=== PATIENT | female | born 1930 | race Caucasian/White ===

== ENCOUNTER 2016-11-16 14:20 | Inpatient (IN) | payer OTHER ==
[~2016-11-16] VITALS: Ht 170.2 cm; Wt 52.7 kg
[2016-11-16] VITALS (9 sets, daily range): BP systolic 95–138; BP diastolic 33–48
--- NOTE | ~2016-11-16 | HC ---
[facility] [place] [address] CONSULTATION Name: JONO STEWART Room #: 447-P ADM IN M.R.#: [id number] Admission: 11/16/16 Attend Phys: Justo Briones DO Discharge: Date of : 28 Report #: [id number] THIS REPORT FOR: //name// CC: Justo Briones DO Kimi Durbin MD DATE OF SERVICE: 11/16/2016 PATIENT OF: Dr. Kimi Durbin and Dr. Justo Briones. CHIEF COMPLAINT: This is a very pleasant 86-year-old white female who experienced vomiting 2 days ago times 1 after eating some chicken with sauce that did not agree with her, she said. Then, she experienced 2 days of dark colored stools described as melena. She had a lot of abdominal cramping when she was having the melena and she developed increasing weakness. She came to the emergency room for evaluation after a hemoglobin check at her place of residence showed hemoglobin of 4.6. At the hospital, her hemoglobin on admission was 5.3. She was admitted for blood transfusions and further workup. PAST MEDICAL HISTORY: Significant for hypertension, atrial fibrillation and she is on Xarelto for that. 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 PAST SURGICAL HISTORY: Significant for cholecystectomy. She has had a total abdominal hysterectomy with bilateral salpingo-oophorectomy and appendectomy and bilateral cataract extractions and lens implants. ALLERGIES: CODEINE AND SULFA. MEDICATIONS: Include amiodarone, Coreg, Advair, Lasix, DuoNeb, Zestril, omeprazole, KCl, Xarelto and tramadol. SOCIAL HISTORY: She does not smoke, she does not drink alcohol and she does not use street drugs. FAMILY HISTORY: Significant for gastric carcinoma in her father and brother and both of them as a result of this disease. There is no history of colon polyps or colon cancer. The patient herself has never had a colonoscopy. REVIEW OF SYSTEMS: She denies any dysphagia, odynophagia, gastroesophageal reflux, hiatal hernia, peptic ulcer disease. She did have 1 episode of vomiting, but ordinarily does not have nausea or vomiting. Her weight has been stable. Her appetite is excellent. She denies any hematemesis or hematochezia, but she had melena for 2 days prior to admission. She had crampy abdominal pain [facility] [address] [place] [address] CONSULTATION Name: JONO STEWART Room #: 447-P [facility] IN [facility]#: [id number] Admission: 11/16/16 Attend Phys: Justo Briones DO Discharge: Date of : 29 Report #: [id number] with this melena, but ordinarily does not have any abdominal pain. She denies any history of jaundice, hepatitis, cholelithiasis, cholecystitis or pancreatitis. She did have gallbladder removed. PHYSICAL EXAMINATION: GENERAL: Reveals a well-developed, thin 86-year-old white female in no apparent distress at the time of the examination. She is awake, alert, oriented times 4 and cooperative and pleasant to converse with. Her height is 5 feet 7 inches, her weight is 116 pounds. HEENT: She is normocephalic, atraumatic and anicteric. HEART: Rhythm is regular at this time, although I know she is a chronic atrial fibrillation patient. I have not seen her EKG. LUNGS: Clear to auscultation bilaterally in all purvis. ABDOMEN: Soft and nontender. Bowel sounds are present in all 4 quadrants. There is no palpable organomegaly or mass. EXTREMITIES: Warm and dry. NEUROLOGIC: She appears grossly intact without lateralizing signs, though I did not test her extensively neurologically. SIGNIFICANT LABORATORY DATA: Her BMP is normal except for a creatinine of 1.2. Her calcium is 8.3, albumin is 2.6, GFR is 42. INR is 1.1, PTT is 25.9. CBC shows a white count of 9.2, RBC 1.92, hemoglobin 5.3, hematocrit 16.1, MCV is 84, MCH is 26, MCHC is 31, RDW is 20, platelets are 338,000. She has anisocytosis and microcytosis and hypochromasia. Stool is heme positive. There were no radiological exams. IMPRESSION: 1. Acute gastrointestinal blood loss with melena and hemoglobin of 5. The patient has been on Xarelto for chronic atrial fibrillation. She has experienced increasing weakness over the last 2 days. She denies dyspnea on exertion or any type of chest pain. 2. Chronic atrial fibrillation, though rhythm is regular at this time. 3. The patient vomited 2 days ago. No hematemesis was noted. 4. Hypertension. 5. History of congestive heart failure. 6. Possible chronic obstructive pulmonary disease. 7. Arthritis in her ankles. She takes occasional Advil for this. 8. Family history of gastric cancer in her father and brother. 9. Protein-calorie malnutrition. RECOMMENDATIONS: For her to have 2 units of packed cells today as you have ordered. I would also recommend checking an iron, TIBC, ferritin, B12 and folate levels. We will hold her Xarelto for now and she will be started on PPIs. We will keep her n.p.o. after midnight for an EGD in the morning. [facility] [address] [place] [address] CONSULTATION Name: JONO STEWART Room #: 447-P ADM IN M.R.#: [id number] Admission: 11/16/16 Attend Phys: Justo Briones DO Discharge: Date of : 29 Report #: [id number] Thank you very much once again for allowing me to participate in her care, Dr. Briones and Dr. Durbin. <ELECTRONICALLY SIGNED> By: Medina Carpenter DO 11/17/16 0757 [id number] 2247 Medina Carpenter DO /nt
--- NOTE | ~2016-11-16 | P ---
[facility] [place] [address] PROCEDURE REPORT Name: JONO STEWART Room #: 447-P ADM IN M.R.#: [id number] Admission: 11/16/16 Attend Phys: Justo Briones DO Discharge: Date of : 29 Report #: [id number] THIS REPORT FOR: //name// CC: Justo Durbin MD BRIEF HISTORY: The patient is an 86-year-old woman who presented with melanotic stools and anemia, requiring transfusion. Upper endoscopy was completed by Dr. Mendoza yesterday and the source of blood loss was not identified. She presents today for colonoscopy to evaluate her GI bleeding. PREOPERATIVE DIAGNOSIS: Gastrointestinal bleeding. POSTOPERATIVE DIAGNOSIS: Moderate diverticulosis coli. MEDICATIONS: Deep sedation with propofol per anesthesia. SPECIMEN: None. ESTIMATED BLOOD LOSS: None. PROCEDURE: Colonoscopy to cecum and terminal ileum. FINDINGS: Prior to propofol sedation, procedure of colonoscopy was discussed with the patient as well as potential risks and its complications. She indicates she understands and desires to proceed. DESCRIPTION OF PROCEDURE: With the patient in the left lateral decubitus position, digital examination was completed, which revealed no abnormalities. Subsequently, the Alloy Digital video colonoscope was introduced into the rectum, advanced under direct vision to the cecum. Cecum was identified by the ileocecal valve and the appendiceal orifice. I was able to advance the tip of the scope across the ileocecal valve and into the distal terminal ileum. Examination of the ileum revealed bilious material. No blood was seen in the ileum. The scope was then withdrawn back into the cecum. The scope was withdrawn through the entire colon. Examination of the colon revealed there was blood from the tip of the cecum all the way to the anal verge. Subjectively, the blood seemed to be slightly brighter in the proximal colon as compared to the distal colon. We spent a good deal of time washing, irrigating and suctioning and cleaning the mucosa as well as possible. In the areas that were cleaned, the mucosa was within normal limits. Normal vascular pattern. Normal light reflex. A bleeding lesion was not found today. She did have a few from the proximal colon with moderately severe diverticular disease of the left colon, without endoscopic evidence of diverticulitis. No mass lesions were seen within the limitations. Vascular ectasias were not seen. Active bleeding was not seen. Splitting of the vessels was not seen. Active bleeding could not be [address] [address] PROCEDURE REPORT Name: JONO STEWART Room #: 447-P [facility] IN ..#: [id number] Admission: 11/16/16 Attend Phys: Justo Briones DO Discharge: Date of : 29 Report #: [id number] found on examination today. Again, there was moderately severe diverticular disease of the left colon, in particular the sigmoid colon, but no endoscopic evidence of diverticulitis. Scope was withdrawn in the rectum and upon retroflexion, no additional abnormalities were seen. Scope was withdrawn. The patient tolerated the procedure well. DISPOSITION: The patient with GI bleeding. There is blood in her colon and presumably, she had some bleeding with or after the prep. However, an active bleeding site could not be identified. She does have diverticular disease and bleeding diverticulum could be the culprit. I suspect the blood is more proximal, although it could be left sided and refluxing back proximally. If bleeding continues, consider a CT angio or a bleeding scan to try to localize the site of bleeding. It is noted she had been anticoagulated and if possible, hold the anticoagulation for several more days. Again, evidence to suggest a colonic bleed, although the site could not be identified. <ELECTRONICALLY SIGNED> By: Ravindra Case MD 11/18/16 1142 1056 1127 Ravindra Case MD /nt
--- NOTE | ~2016-11-16 | EKG ---
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 : 1930 Requested By: Michelle Butler Order Number: [id number] MD: Des Orozco Measurements Intervals [place] Rate: 61 P: 17 [place]: 139 QRS: 70 QRSD: 93 T: 65 QT: 483 QTc: 487 Interpretive Statements Sinus rhythm Low voltage, extremity leads Borderline prolonged QT interval Compared to ECG 04/07/2011 17:43:00 Low QRS voltage now present Electronically Signed On 11-19-2016 22:03:00 CDT by Des Orozco [email or web address] <ELECTRONICALLY SIGNED> By: Des Orozco MD 11/19/16 2203 1436 143 Des Orozco MD /[facility]
[~2016-11-16 14:20] MED LIST: LISINOPRIL20 MG PO
[2016-11-16 14:57] LABS: PLATELET COUNT 338 thou/uL (150-400); WBC 9.2 thou/uL (4.0-11.0)
[2016-11-16 15:03] LABS: ABSOLUTE NEUTROPHILS 6.7 thou/uL (1.4-8.2); BASOPHILS 0.9 % (0.0-2.0); EOSINOPHILS 2.9 % (0.0-3.0); LYMPHOCYTES 15.2 % (24.0-44.0); MCH 26.3 pg (26.0-34.0); MCHC 31.3 g/dL (28.0-37.0); MCV 83.9 fL (80.0-100.0); MONOCYTES 8.1 % (1.0-8.0); POLYS 72.9 % (36.0-66.0); RBC 1.92 mil/uL (4.20-5.00); RDW 20.2 % (10.5-14.5)
[2016-11-16 15:04] LABS: CALCIUM 8.3 mg/dL (8.5-10.1); CREATININE 1.2 mg/dL (0.6-1.0); POTASSIUM 4.5 mmol/L (3.5-5.1)
[2016-11-16 15:07] LABS: MANUAL DIFF NO
[2016-11-16 15:08] LABS: HEMATOCRIT 16.1 % (37.0-47.0); HEMOGLOBIN 5.1 gm/dL (12.0-15.0)
[2016-11-16 15:11] LABS: ALBUMIN 2.6 g/dL (3.4-5.0); TOTAL BILIRUBIN 0.3 mg/dL (<0.1-1.0); TOTAL PROTEIN 5.5 g/dL (6.4-8.2)
[2016-11-16 15:13] LABS: APTT 25.9 Seconds (24.5-32.8); INR 1.1; PROTIME 11.5 Seconds (9.3-11.4)
[2016-11-16 15:31] LABS: ANISOCYTOSIS 1+; HYPOCHROMASIA 2+; MICROCYTES 1+; PLATELET ESTIMATE NORMAL
[2016-11-16] MEDS ORDERED: ADVAIR HFA115 MCG/21 INH (16:27)
[2016-11-16] MEDS ORDERED: TRAMADOL 50 MG50 MG PO (16:28)
[2016-11-16] MEDS ORDERED: DUONEB 2.5-0.5 M3 ML INH (16:28)
[2016-11-16] MEDS ORDERED: LASIX 20 MG TAB20 MG PO (16:28)
[2016-11-16] MEDS ORDERED: LISINOPRIL5 MG PO (16:28)
[2016-11-16] MEDS ORDERED: COREG6.25 MG PO (16:29)
[2016-11-16] MEDS ORDERED: PACERONE 200 M200 M1 PO (16:29)
[2016-11-16] MEDS ORDERED: OMEPRAZOLE40 MG PO (16:30)
[2016-11-16] MEDS ORDERED: XARELTO15 MG PO (16:30)
[2016-11-16] MEDS ORDERED: POTASSIUM20 PO (16:30)
[2016-11-16 21:08] LABS: HEMATOCRIT 16.6 % (37.0-47.0); HEMOGLOBIN 5.3 gm/dL (12.0-15.0)
[2016-11-17 02:30] VITALS: BP 121/36
[2016-11-17 06:06] LABS: ABSOLUTE NEUTROPHILS 5.6 thou/uL (1.4-8.2); BASOPHILS 1.4 % (0.0-2.0); EOSINOPHILS 4.8 % (0.0-3.0); HEMATOCRIT 22.4 % (37.0-47.0); LYMPHOCYTES 18.2 % (24.0-44.0); MCH 27.3 pg (26.0-34.0); MCHC 32.7 g/dL (28.0-37.0); MCV 83.5 fL (80.0-100.0); MONOCYTES 9.4 % (1.0-8.0); PLATELET COUNT 301 thou/uL (150-400); POLYS 66.2 % (36.0-66.0); RBC 2.68 mil/uL (4.20-5.00); RDW 18.6 % (10.5-14.5); WBC 8.4 thou/uL (4.0-11.0)
[2016-11-17 06:10] LABS: HEMOGLOBIN 7.3 gm/dL (12.0-15.0); MANUAL DIFF NO
[2016-11-17 06:21] LABS: CALCIUM 8.1 mg/dL (8.5-10.1); CREATININE 1.2 mg/dL (0.6-1.0); POTASSIUM 4.5 mmol/L (3.5-5.1)
[2016-11-17 08:00] VITALS: BP 135/64
[2016-11-17 16:00] VITALS: BP 153/73
[2016-11-17 19:42] VITALS: BP 117/97
[2016-11-18 03:55] VITALS: BP 124/47
[2016-11-18 08:05] VITALS: BP 163/61
[2016-11-18 16:14] VITALS: BP 135/40
[2016-11-18 19:45] VITALS: BP 121/46
[2016-11-19 04:26] VITALS: BP 117/42
[2016-11-19 05:18] LABS: ABSOLUTE NEUTROPHILS 4.3 thou/uL (1.4-8.2); BASOPHILS 1.3 % (0.0-2.0); EOSINOPHILS 5.3 % (0.0-3.0); HEMOGLOBIN 6.5 gm/dL (12.0-15.0); LYMPHOCYTES 17.3 % (24.0-44.0); MCH 27.7 pg (26.0-34.0); MCHC 33.2 g/dL (28.0-37.0); MCV 83.5 fL (80.0-100.0); MONOCYTES 9.8 % (1.0-8.0); PLATELET COUNT 299 thou/uL (150-400); POLYS 66.3 % (36.0-66.0); RBC 2.33 mil/uL (4.20-5.00); RDW 18.5 % (10.5-14.5); WBC 6.5 thou/uL (4.0-11.0)
[2016-11-19 05:19] LABS: MANUAL DIFF NO
[2016-11-19 05:22] LABS: HEMATOCRIT 19.5 % (37.0-47.0)
[2016-11-19 05:24] LABS: CALCIUM 8.1 mg/dL (8.5-10.1); CREATININE 0.8 mg/dL (0.6-1.0); POTASSIUM 4.8 mmol/L (3.5-5.1)
[2016-11-19 07:25] VITALS: BP 135/61
[2016-11-19 07:31] VITALS: BP 119/60; BP 149/64
[2016-11-19 09:07] VITALS: BP 149/64
[2016-11-19 14:25] VITALS: BP 119/64
[2016-11-19 14:53] LABS: HEMATOCRIT 26.5 % (37.0-47.0)
[2016-11-19 14:55] LABS: HEMOGLOBIN 8.8 gm/dL (12.0-15.0)
[2016-11-19 20:30] VITALS: BP 133/49; BP 1330/49
[2016-11-19 21:15] LABS: HEMATOCRIT 24.7 % (37.0-47.0); HEMOGLOBIN 8.7 gm/dL (12.0-15.0)
[2016-11-20 02:58] VITALS: BP 127/57
[2016-11-20 06:17] LABS: ABSOLUTE NEUTROPHILS 5.4 thou/uL (1.4-8.2); BASOPHILS 0.8 % (0.0-2.0); HEMATOCRIT 25.9 % (37.0-47.0); HEMOGLOBIN 8.6 gm/dL (12.0-15.0); LYMPHOCYTES 15.8 % (24.0-44.0); MCHC 33.2 g/dL (28.0-37.0); MCV 84.3 fL (80.0-100.0); MONOCYTES 9.6 % (1.0-8.0); PLATELET COUNT 268 thou/uL (150-400); POLYS 68.8 % (36.0-66.0); RBC 3.07 mil/uL (4.20-5.00); RDW 17.4 % (10.5-14.5); WBC 7.8 thou/uL (4.0-11.0)
[2016-11-20 06:19] LABS: MANUAL DIFF NO
[2016-11-20 06:31] LABS: CALCIUM 8.3 mg/dL (8.5-10.1); CREATININE 0.9 mg/dL (0.6-1.0); POTASSIUM 4.4 mmol/L (3.5-5.1)
[2016-11-20 08:00] VITALS: BP 139/44
[2016-11-20 16:00] VITALS: BP 135/45
[2016-11-20 20:30] VITALS: BP 136/44
[2016-11-21 04:15] VITALS: BP 107/30
[2016-11-21 06:22] LABS: HEMATOCRIT 25.9 % (37.0-47.0); HEMOGLOBIN 8.4 gm/dL (12.0-15.0); MCH 27.5 pg (26.0-34.0); MCHC 32.4 g/dL (28.0-37.0); MCV 84.9 fL (80.0-100.0); RBC 3.05 mil/uL (4.20-5.00); RDW 17.9 % (10.5-14.5); WBC 7.7 thou/uL (4.0-11.0)
[2016-11-21 08:39] VITALS: BP 133/68
[2016-11-21 09:06] VITALS: BP 140/62
[2016-11-21 15:37] VITALS: BP 117/49
[2016-11-21 20:05] VITALS: BP 138/54
[2016-11-22 04:30] VITALS: BP 128/56
[2016-11-22 08:53] VITALS: BP 151/65
[2016-11-22] MEDS ORDERED: ASPIR 8181 MG PO (10:46)
[2016-11-22] MEDS ORDERED: PANTOPRAZOLE SO40 M1 PO (10:46)
== END 2016-11-22 17:00 | DRG 377 ==
LOC: ER 14:20 → EROBS 15:22 → 4S 15:22
PROVIDERS: Family Medicine; Internal Medicine Gastroenterology; Physician Assistant; Specialist
PROC: 30233N1 Transfusion of Nonautologous Red Blood Cells into Peripheral Vein, Percutaneous Approach (ICD-10-PCS; 2016-11-16)
PROC: 0DJ08ZZ Inspection of Upper Intestinal Tract, Via Natural or Artificial Opening Endoscopic (ICD-10-PCS; principal; 2016-11-17)
PROC: 0DJD8ZZ Inspection of Lower Intestinal Tract, Via Natural or Artificial Opening Endoscopic (ICD-10-PCS; 2016-11-18)
DX: K92.1 Melena (principal); E43 Unspecified severe protein-calorie malnutrition; D62 Acute posthemorrhagic anemia; Z68.1 Body mass index [BMI] 19.9 or less, adult; M19.90 Unspecified osteoarthritis, unspecified site; I50.9 Heart failure, unspecified; I11.0 Hypertensive heart disease with heart failure; Z96.1 Presence of intraocular lens; I48.2 Chronic atrial fibrillation; K57.30 Diverticulosis of large intestine without perforation or abscess without bleeding; K44.9 Diaphragmatic hernia without obstruction or gangrene; Z88.6 Allergy status to analgesic agent; Z88.2 Allergy status to sulfonamides; Z88.0 Allergy status to penicillin; Z90.49 Acquired absence of other specified parts of digestive tract; Z90.710 Acquired absence of both cervix and uterus; Z90.722 Acquired absence of ovaries, bilateral; Z98.42 Cataract extraction status, left eye; Z98.41 Cataract extraction status, right eye; Z80.0 Family history of malignant neoplasm of digestive organs
CPT/HCPCS: 10100; 62110; 62900; 70005

== ENCOUNTER → 2016-12-01 | Outpatient (CLI) | payer OTHER | LOC: OPONC 12:52 | DX: D64.9 Anemia, unspecified (principal) ==

== ENCOUNTER 2018-10-26 08:00 | Inpatient (IN) | payer OTHER ==
[2018-10-26] VITALS (7 sets, daily range): BP systolic 128–188; BP diastolic 46–78
[~2018-10-26] VITALS: Ht 167.6 cm; Wt 59.6 kg
--- NOTE | ~2018-10-26 | HC ---
[facility] [place] [address] CONSULTATION Name: JONO STEWART Room #: 219-P ADM IN M.R.#: [id number] Admission: 10/26/18 ������������������ Attend Phys: Diego Srivastava MD Discharge: ������������������ Date of : 29 Report #: [id number] THIS REPORT FOR: //name// CC: iDego Durbin DATE OF SERVICE: 11/03/2018 CONSULTATION: Infectious diseases. HISTORY OF PRESENT ILLNESS: The patient is an 88-year-old white female admitted to [facility] on 10/26/2018 complaining of altered mental status. This was associated with cough, positive chest x-ray and increased oxygen requirements. The patient was diagnosed with healthcare-associated pneumonia, possible aspiration. She was treated with cefepime plus Cipro. The patient has been in the hospital now for about a week. She was noted to have a rising white count. Infectious disease consultation was requested to assist with further evaluation and management. PAST MEDICAL HISTORY: Significant for hypertension, coronary artery disease and COPD. ALLERGIES: SHE HAS A HISTORY OF PENICILLIN AND SULFA ALLERGIES, BUT THEY ARE NOT OTHERWISE CHARACTERIZED. SOCIAL HISTORY: The patient is . No history of tobacco nor alcohol. REVIEW OF SYSTEMS: CONSTITUTIONAL: Somewhat limited because of confusion. The patient is aware that she is in the hospital. She says she feels pretty comfortable. She is not complaining of shortness of breath. She denies fevers, chills, sweats. HEENT: She denies any headache, sinus congestion, sore throat, trouble swallowing. PULMONARY: The patient is not complaining of cough, chest pain or shortness of breath. CARDIOVASCULAR: She is not complaining of angina, syncope or palpitations. GASTROINTESTINAL: The patient denies nausea, vomiting, diarrhea or constipation. GENITOURINARY: No urinary complaints. MUSCULOSKELETAL: She notes weakness, but no pain in her extremities. PHYSICAL EXAMINATION: GENERAL: The patient appears chronically ill, uncomfortable, but not in any distress. VITAL SIGNS: Show maximum measured temperature in the hospital that has been 100.5. [facility] [address] [place] [address] CONSULTATION Name: JONO STEWART Room #: 219-P [facility] IN ..#: [id number] Admission: 10/26/18 ������������������ Attend Phys: Diego Srivastava MD Discharge: ������������������ Date of : 29 Report #: [id number] SKIN: Shows no rash, lesion or exanthem. ENT: Negative. HEART: Heart sounds normal. LUNGS: Clear, but with diminished breath sounds. She is not dyspneic at rest. ABDOMEN: Belly is soft, not tender. Normal bowel sounds, without organomegaly. EXTREMITIES: Unremarkable. LABORATORY DATA: The white count has gone from 15,000 to most recently 20.4, hemoglobin has gone from 10.8 to 8.4 during the hospitalization, platelets 286,000. Electrolytes are normal, BUN 43, creatinine 1.2, glucose 115. The urine culture on admission had E. coli susceptible to all antibiotics tested. Blood cultures have been negative. Repeat cultures on 11/02/2018 are still negative at 24 hours. The chest x-ray shows stable left upper lobe infiltrate. There was also a pulmonary nodule, which has been stable. In summary, the patient has been treated for pneumonia with cefepime and Cipro. She continues to have infiltrate, appeared ill and now has significant leukocytosis. At this point, I am concerned the patient may have nosocomial kayleigh from her healthcare-associated pneumonia. There may be anaerobes from aspiration, which were not well covered by cefepime and Cipro. I suggest that we change her current regimen, which was clindamycin plus Levaquin to vancomycin plus meropenem. This will give us better coverage against Gram-positive including MRSA and enterococcal organisms. This gives excellent coverage against anaerobes and Gram-negatives with the meropenem. We can check Legionella and pneumococcal urinary antigen. I would like to check inflammatory markers such as CRP, procalcitonin and sedimentation rate. We will want to continue to follow the white count and chest x-ray. Hopefully, with the broader antibiotic therapy, we will see improvement over the next few days. Dr. Robledo will return on Sunday for further followup. ��������������������������������������������� ���������������������������������������� By: ��������������������������������������������� 0903 0218 Ravindra Angela MD /nt
[~2018-10-26 08:00] MED LIST changes: +ADVAIR HFA115 MCG/21 INH; +ASPIR 8181 MG PO; +COREG6.25 MG PO; +DUONEB 2.5-0.5 M3 ML INH; +LASIX 20 MG TAB20 MG PO; +LISINOPRIL5 MG PO; +OMEPRAZOLE40 MG PO; +PACERONE 200 M200 M1 PO; +PANTOPRAZOLE SO40 M1 PO; +POTASSIUM20 PO; +TRAMADOL 50 MG50 MG PO; +XARELTO15 MG PO
[2018-10-26 08:21] LABS: HEMATOCRIT 34.5 % (37.0-47.0); HEMOGLOBIN 10.8 gm/dL (12.0-15.0); MCH 25.7 pg (26.0-34.0); MCHC 31.3 g/dL (28.0-37.0); MCV 82.3 fL (80.0-100.0); PLATELET COUNT 377 thou/uL (150-400); RBC 4.19 mil/uL (4.20-5.00); RDW 16.5 % (10.5-14.5); WBC 20.4 thou/uL (4.0-11.0)
[2018-10-26] MEDS ORDERED: PACERONE100 MG PO (08:21)
[2018-10-26 08:22] LABS: URINE BILIRUBIN NEGATIVE (Negative); URINE BLOOD TRACE (Negative); URINE CLARITY SL CLOUDY; URINE COLOR YELLOW; URINE GLUCOSE-RANDOM* NEGATIVE (Negative); URINE KETONES 1+ (Negative); URINE NITRITE-REFLEX NEGATIVE (Negative); URINE PROTEIN (DIPSTICK) TRACE (Negative)
[2018-10-26] MEDS ORDERED: BREO ELLIPTA 21 EACH INH (08:22)
[2018-10-26] MEDS ORDERED: EUCERIN CREME57 GM TOP (08:23)
[2018-10-26] MEDS ORDERED: IRON325 PO (08:24)
[2018-10-26] MEDS ORDERED: LOPERAMIDE 2 MG2 M1 PO (08:25)
[2018-10-26] MEDS ORDERED: PROBIOTIC1 EAC1 PO (08:25)
[2018-10-26] MEDS ORDERED: CLARITIN10 MG PO (08:26)
[2018-10-26] MEDS ORDERED: NYAMYC15 GM TOP (08:28)
[2018-10-26] MEDS ORDERED: RANITIDINE 150150 M1 PO (08:30)
[2018-10-26] MEDS ORDERED: PRESERVISION A1 EACH PO (08:30)
[2018-10-26] MEDS ORDERED: SENEXON-S TABL1 EACH PO (08:31)
[2018-10-26] MEDS ORDERED: VITAMINC500 PO (08:31)
[2018-10-26] MEDS ORDERED: TYLENOL325 MG PO (08:31)
[2018-10-26 08:32] LABS: URINE LEUKOCYTES-REFLEX 1+ (Negative)
[2018-10-26 08:36] LABS: ANION GAP 12 mmol/L (7-16); BUN 22 mg/dL (7-18); CALCIUM 9.3 mg/dL (8.5-10.1); CHLORIDE 97 mmol/L (98-107); CO2 27 mmol/L (21-32); GLUCOSE 131 mg/dL (74-106); POTASSIUM 4.3 mmol/L (3.5-5.1); SODIUM 136 mmol/L (136-145)
[2018-10-26 08:39] LABS: ANISOCYTOSIS 1+
[2018-10-26 08:46] LABS: ALBUMIN 2.8 g/dL (3.4-5.0); SGOT 14 U/L (15-37); SGPT 11 U/L (30-65); TOTAL BILIRUBIN 0.5 mg/dL (<0.1-1.0); TOTAL PROTEIN 8.1 g/dL (6.4-8.2); TROPONIN-I <0.06 ng/mL (<0.06)
[2018-10-26 08:57] LABS: BACTERIA-REFLEX >30 Many /HPF (None Seen); CASTS None Seen /LPF (None Seen); CRYSTALS None Seen /LPF (None Seen); SQUAMOUS 4-10 Moderate /LPF (0-3); URINE RBC None Seen /HPF (0-2)
--- NOTE | 2018-10-26 11:51 | NUR ---
TO UNIT FROM Santos BY MARJAN, REPORT FROM SISSY SMILEY. PROFOUNDLY CONFUSED, CANNOT STATE HER OWN NAME. NSR PER TELE. ABNORMAL LABS NOTED. FALL PRECAUTIONS IN PLACE. FREQUENT CHECKS; WILL CONTINUE TO MONITOR.
[2018-10-27] VITALS (8 sets, daily range): BP systolic 93–154; BP diastolic 52–92
--- NOTE | 2018-10-27 03:42 | NUR ---
ALERT,CONFUSED.ON O2 3L NC.VILLANUEVA TO DD.REPOSITIONED Q2 HOURS AND NEEDED.MONITOR SHOWS SR.WILL MONITOR AND CONTINUE POC.
[2018-10-27 05:50] LABS: HEMATOCRIT 33.5 % (37.0-47.0); HEMOGLOBIN 10.5 gm/dL (12.0-15.0); MCH 25.9 pg (26.0-34.0); MCHC 31.5 g/dL (28.0-37.0); MCV 82.2 fL (80.0-100.0); RBC 4.07 mil/uL (4.20-5.00); RDW 16.5 % (10.5-14.5); WBC 22.5 thou/uL (4.0-11.0)
[2018-10-27 05:54] LABS: ALBUMIN 2.4 g/dL (3.4-5.0); CALCIUM 8.7 mg/dL (8.5-10.1); POTASSIUM 3.9 mmol/L (3.5-5.1); TOTAL BILIRUBIN 0.4 mg/dL (<0.1-1.0); TOTAL PROTEIN 7.5 g/dL (6.4-8.2)
--- NOTE | 2018-10-27 10:58 | NUR ---
1100-Took pt over the other nurse, SISSY Sanchez. Pt is very confused. Pt opened her eys when this nurse requested to open but did not follow the other commands. Pt disliked facemask and continuously pulled off. Family was at bedside. SISSY Sanchez tried to feed pt breakfast but pt did not refused taking food orally. Pt kept position. SISSY Sanchez applied víctor hollis since pt pulled facemask off. Will continue to monitor.
--- NOTE | 2018-10-27 11:57 | NUR ---
PT CARE ASSUMED APPROX 0700. PT AWAKE BUT CONFUSED. INCONSISTENTLY FOLLOWING ONE STEP COMMANDS. O2 SAT LOW AT 86-88% ON RA. PT WILL NOT KEEP O2 ON. NOTED THAT NOSE MAY BE SORE SO FACE MASK PLACED. PT CONTINUED TO REMOVE O2 SO RESTRAINTS INITITATED PER DR ARZOLA. SEE RESTRAINT DOCUMENTATION. FAMILY AT BEDSIDE AND RECEIVED CLINICAL UPDATE THIS AM. VS OTHERWISE STABLE. PT FAMILY REPORTED GAGGING NOTED. PT MADE NPO FOR S/T EVAL TOMORROW. IVF ADDED TO POC WHILE PT IS NPO. PAIN ADDRESSED DUE TO EXCESSIVE MOANING BY PT. PT CARE TRANSFERRED TO NEW RN AT APPROX 1100.
--- NOTE | 2018-10-27 16:06 | NUR ---
1508-Pt's clinched on R side rails when the other nurse notified re pt's position. Facemask bothered pt's eyes and made big red slava around pt's eyes. This nurse and nurse talent acquisition assistant entered pt's room to change her position then smelled BM. Pt was cleaned up from the BM and changed gown & bedlinens. 1535-This nurse came out of room then the media monitor notified this nurse that pt's heart rhythm was SVT range from 140s to 180s. THe other nurseElsa aquired stat EKG and notified Dr. Srivastava. Dr. Srivastava ordered Lopressor 10mg IV. 1558-Lopressor was administered as ordered. Pt's facemask was changed to High Flow NC w/ humidified 5L O2. 19826-UD down to 120s max. Pt had breathing tx and rest at this time.
--- NOTE | 2018-10-27 16:42 | NUR ---
1614-Pt's HR remained 130s even after administering of Lopressor 10mg IV. then started up and down between 130s and 100s. Pt opened eyes to this nurse's voice but looked very apprehensive. 1624- Notified Dr. Srivastava. Cardizem 10 mg IV stat was administered as Dr. Srivastava ordered.
--- NOTE | 2018-10-27 18:23 | EKG ---
[address] [address] ELECTROCARDIOGRAM REPORT Name: JONO STEWART Room #: 219-P ADM IN M.R.#: [id number] ������������������ Admission: 10/26/18 ������������������ Attend Phys: Diego Srivastava MD Discharge: ������������������ Date of : 28 Report #: [id number] ����������������������������������������������������������������� [id number] THIS REPORT FOR: //name// [facility] ED Test Date: 2018-10-26 Test Time: 08:06:46 Pat Name: JONO STEWART Department: Room: 219 Gender: F Legal Director: : 1930 Requested By: Tae Zafar Order Number: [id number] MD: Rodo Le Measurements Intervals [place]age Rate: 72 P: 77 [place]: 161 QRS: 63 QRSD: 94 T: 40 QT: 458 QTc: 502 Interpretive Statements Sinus rhythm Prolonged QT interval Compared to ECG 11/16/2016 14:36:58 No significant changes Electronically Signed On 10-27-2018 18:23:37 CDT by Rodo Le [email or web address] ��������������������������������������������� <ELECTRONICALLY SIGNED> ���������������������������������������� By: Rodo Le MD, [facility] ��������������������������������������������� 10/27/18 1823 0806 08 Rodo Le MD, [facility] /EPI
--- NOTE | 2018-10-27 19:57 | EKG ---
[address] [address] ELECTROCARDIOGRAM REPORT Name: JONO STEWART Room #: 219-P ADM IN M.R.#: [id number] ������������������ Admission: 10/26/18 ������������������ Attend Phys: Diego Srivastava MD Discharge: ������������������ Date of : 29 Report #: [id number] ����������������������������������������������������������������� [id number] THIS REPORT FOR: //name// [facility] Test Date: 2018-10-27 Test Time: 15:42:59 Pat Name: JONO STEWART Department: Room: 219 P Gender: F Manager Store: DOC : 1930 Requested By: Diego Srivastava Order Number: [id number] MD: Des Orozco Measurements Intervals Wayan Rate: 150 P: LA: QRS: 85 QRSD: 138 T: -35 QT: 327 QTc: 517 Interpretive Statements Atrial fibrillation Right bundle branch block Compared to ECG 11/16/2016 14:36:58 Right bundle-branch block now present Sinus rhythm no longer present Electronically Signed On 10-27-2018 19:57:08 CDT by Des Orozco [email or web address] ��������������������������������������������� <ELECTRONICALLY SIGNED> ���������������������������������������� By: Des Orozco MD ��������������������������������������������� 10/27/18 1957 1542 154 Des Orozco MD /EPI
[2018-10-28 03:45] VITALS: BP 124/67
--- NOTE | 2018-10-28 05:17 | NUR ---
PATIENT CALM.DIDN'T NEED ANY MITTENS THIS SHIFT.ON CARDIZEM GTT; TITRATED.CONVERTED TO SR AT ONE POINT BUT BACK TO AFIB AGAIN.NPO.BLOOD GLUCOSE 164.WILL MONITOR AND CONTINUE POC.
[2018-10-28 08:30] LABS: HEMATOCRIT 33.8 % (37.0-47.0); HEMOGLOBIN 10.6 gm/dL (12.0-15.0); MCH 25.8 pg (26.0-34.0); MCHC 31.3 g/dL (28.0-37.0); MCV 82.4 fL (80.0-100.0); PLATELET COUNT 402 thou/uL (150-400); RBC 4.11 mil/uL (4.20-5.00); RDW 16.6 % (10.5-14.5); WBC 20.1 thou/uL (4.0-11.0)
[2018-10-28 08:41] LABS: CALCIUM 8.8 mg/dL (8.5-10.1); CREATININE 1.2 mg/dL (0.6-1.0); POTASSIUM 3.8 mmol/L (3.5-5.1)
[2018-10-28 08:44] VITALS: BP 133/68
[2018-10-28 09:17] LABS: ABSOLUTE NEUTROPHILS 17.1 thou/uL (1.4-8.2); PLATELET ESTIMATE NORMAL
--- NOTE | 2018-10-28 10:05 | 2DMMODE ---
[facility] [address] [place] [address] 2 D/M-MODE ECHOCARDIOGRAM Name: JONO STEWART Room #: 219-P [facility] IN ..#: [id number] ������������� Admission: 10/26/18 ������������� Attend Phys: Diego Srivastava MD Discharge: ��� ������������� ��� Date of : 28 Date of Service: 10/28/18 1004 �� Report #: [id number] �������� ��������������������������������������������[id number] THIS REPORT FOR: //name// APPROVED REPORT Study performed: 10/28/2018 09:03:21 EXAM: Comprehensive 2D, Doppler, and color-flow Echocardiogram Patient Location: In-Patient Room #: 219 Status: routine BSA: 1.60 HR: 96 bpm BP: 124/67 mmHg Rhythm: NSR Other Information Study Quality: Poor Indications COPD Dyspnea CAD Hypertension/HDD 2D Dimensions RVDd: 29.57 mm IVSd: 13.12 (7-11mm) LVOT Diam: 19.06 (18-24mm) LVDd: 42.82 mm PWd: 12.06 (7-11mm) LVDs: 33.97 (25-40mm) IVC: 14.00 mm Volumes Left Atrial Volume (Systole) Single Plane 4CH: 50.47 mL Single Plane 2CH: 22.19 mL LA ESV Index: 25.00 mL/m2 Aortic Valve AoV Peak Tyler.: 1.30 m/s AO Peak Gr.: 6.78 mmHg LVOT Max P.39 mmHg LVOT Max V: 0.92 m/s MANISH Vmax: 2.02 cm2 Pulmonary Valve [facility] [address] [place] [address] 2 D/M-MODE ECHOCARDIOGRAM Name: JONO STEWART Room #: 219-P [facility] IN .#: [id number] ������������� Admission: 10/26/18 ������������� Attend Phys: Diego Srivastava MD Discharge: ��� ������������� ��� Date of : 28 Date of Service: 10/28/18 1004 �� Report #: [id number] �������� ��������������������������������������������[id number] PV Peak Tyler.: 0.88 m/s PV Peak Gr.: 3.13 mmHg Tricuspid Valve TR Peak Tyler.: 3.03 m/s TR Peak Gr.: 36.62 mmHg PA Pressure: 42.00 mmHg Left Ventricle The left ventricle is normal size. Mild concentric left ventricular hypertrophy. The left ventricular systolic function is normal. The left ventricular ejection fraction is within the normal range. LVEF is 55-60%. This study is not technically sufficient to allow evaluation of the LV diastolic function. Right Ventricle The right ventricle is normal size. Right ventricle is hypokinetic. Atria The left atrium size is normal. The right atrium size is normal. Aortic Valve The Aortic valve is sclerotic. Mild aortic regurgitation. There is no aortic valvular stenosis. Mitral Valve The mitral valve is normal in structure. Mild mitral regurgitation. No evidence of mitral valve stenosis. Tricuspid Valve The tricuspid valve is normal in structure. Mild tricuspid regurgitation. Estimated PAP is 42mmHg. Pulmonic Valve Pulmonic valve is not well visualized. Mild pulmonic regurgitation. Great Vessels The aortic root is normal in size. The ascending aorta is normal in size. IVC is normal in size and collapses >50% with inspiration. Pericardium There is no pericardial effusion. [facility] [address] [place] [address] 2 D/M-MODE ECHOCARDIOGRAM Name: JONO STEWART Room #: 219-P [facility] IN ..#: [id number] ������������� Admission: 10/26/18 ������������� Attend Phys: Diego Srivastava MD Discharge: ��� ������������� ��� Date of : 28 Date of Service: 10/28/18 1004 �� Report #: [id number] �������� ��������������������������������������������[id number] <Conclusion> The left ventricle is normal size. Mild concentric left ventricular hypertrophy. The left ventricular systolic function is normal. The right ventricle is normal size. The left atrium size is normal. The Aortic valve is sclerotic. Mild aortic regurgitation. Mild mitral regurgitation. Mild tricuspid regurgitation. Estimated PAP is 42mmHg. ��������������������������������������������� <ELECTRONICALLY SIGNED> ���������������������������������������� By: Elliott Ramirez MD ��������������������������������������������� 10/28/18 1004 1004 1004 Elliott Ramirez MD /INF
--- NOTE | 2018-10-28 10:42 | NUR ---
Patient sleeping met son at bedside. Patient ltc resident of [facility]. Sp with facility, patient Alert, one assist, usu can transfer herself to . She propels her wc in facility. She participates in activities. wears oxygen prn. She feeds herself at facility. Updated son of role of casemgt. Plan return to facility once stable.
[2018-10-28 11:27] VITALS: BP 151/48
--- NOTE | 2018-10-28 11:31 | NUR ---
Assess due to RD consult received for malnutrition. Admit with mental status changes, UTI, acute on chronic heart failure, ? pneumonia. From nursing facility, hx dementia. Upon visit, pt sound asleep. Family member was in room and able to state pt usually feeds herself, tolerates regular diet and has not had any wt loss. Family member states swallow eval was done but pt was not alert enough. No documentation at this time yet from . O status. Will follow up again on 10/30 to determine intake patterns, ability to eat.
--- NOTE | 2018-10-28 14:20 | NUR ---
PT RESIDES AT [facility] FAXED CLINICAL UPDATE TO FACILITY SPOKE WITH KERRY IN ADM SHE RECEIVED UPDATE. DCP TO FOLLOW.
[2018-10-28 15:11] VITALS: BP 154/56
--- NOTE | 2018-10-28 15:59 | NUR ---
ASSESSMENT CHARTED, PATIENT DOES NOT OPEN EYES OR RESPOND TO NAME, BECOMES AGITATED WHEN WE ATTEMPT TO REPOSITION HER, TURNS BACK TO HER R SIDE IN THE POSITION. CARDIZEM DRIP AND NS INFUSING, NPO, DID NOT EAT OR DRINK DURING SPEECH CONSULT, VILLANUEVA PATENT TO DD, WILL CONTINUE TO MONITOR
[2018-10-28 20:00] VITALS: BP 137/53
[2018-10-29 05:34] VITALS: BP 150/59
[2018-10-29 05:37] LABS: HEMATOCRIT 33.1 % (37.0-47.0); HEMOGLOBIN 10.6 gm/dL (12.0-15.0); MCH 26.3 pg (26.0-34.0); MCHC 31.9 g/dL (28.0-37.0); MCV 82.5 fL (80.0-100.0); RBC 4.02 mil/uL (4.20-5.00); RDW 17.2 % (10.5-14.5); WBC 17.4 thou/uL (4.0-11.0)
[2018-10-29 05:42] LABS: CALCIUM 8.6 mg/dL (8.5-10.1); POTASSIUM 3.2 mmol/L (3.5-5.1)
--- NOTE | 2018-10-29 06:48 | NUR ---
END OF SHIFT NOTE: RECEIVED REPORT AND ASSUMED PATIENT CARE AT 1900. PATIENT IS LYING IN THE BED IN THE POSITION AND IS AWAKE BUT ONLY RESPONDS TO PAIN DURING THE IV STICK. PATIENT IS FEBRILE AND WASH CLOTHS PLACED ON PATIENT AND LOWERED THE TEMPERATURE. PATIENT IS NPO AND NOTED TO BE ON CARDIZEM DRIP WITH IV ABX. PATIENT HAD E. COLI GROWING IN THE URINE. PATIENT NOTED TO BE IN A-FIB/A-FLUTTER ON THE MONITOR WITH SEVERAL PERIODS OF V-TACH. PATIENT MONITORED CLOSELY.
[2018-10-29 08:47] VITALS: BP 153/58
--- NOTE | 2018-10-29 11:35 | NUR ---
ASSUMED CARE OF PT APPROX 0715, PT NOT OPENING EYES, LATER IN SHIFT SHE DID AND ALLOWED ME TO GENTLY PULL HER R ARM OUT, COBAIN ON IV WAS WRAPPED TOO TIGHTLY, IV STILL WORKING. GENTLY REMIND HER AND PULL AND SHE ALLOWS, THEN CURLS RIGHT BACK UP ON HER RIGHT SIDE. CXR WAS ABLE TO BE TAKEN, PORTABLE, WITH SOME DIFFICULTY. CALLED PHYSICIAN FOR TYLENOL RECTAL FOR ANY CONTINUED FEVER. CARDIOLOGY CALLED TO ASK ABOUT VS OF HR 40, NOTHING SHOWN ON TELE MONITOR, LET HER KNOW. NEW ORDERS ENTERED. WILL ADM SOON ABLE. SPOKE W/FAMILY. THEY STATE PT'S NORM IS W/C BOUND YET ABLE TO FEED HERSELF. REPORTS HERE AT HOSPITAL SHOW HER IN SAME CLINICAL CONDITION SHE'S IN, MOUTH SWABS PROVIDED TO HELP WITH ANY DRY MOUTH FROM BEING NPO. WILL CONTINUE TO MONITOR. PT LIKES THE COOKING SHOW ON SO WILL PASS OFF TO NEXT SHIFT TO KEEP CONTINUITY
[2018-10-29 12:29] VITALS: BP 148/71
[2018-10-29 16:00] VITALS: BP 111/69
[2018-10-29 16:22] LABS: BE(vivo) 2.3 mmol/L (-2 to +3); HCO3 26.3 mmol/L (22.0-26.0); PCO2 38.3 mmHg (35.0-45.0); pH 7.454 (7.360-7.450); sO2 93.7 % (92.0-98.0)
--- NOTE | 2018-10-29 17:38 | NUR ---
CONSULTED TO PLACE A PICC FOR THIS PATIENT ON MULTIPLE IV MEDICATIONS. THE PATIENT IS RESTLESS AND NEEDS TO BE REDIRECTED FRQUENTLY. CONSENT OBTAINED FROM THE DPOA BY JESSICA SHEEHAN. THE PATIENT IS NONRESPONSIVE TO TEACHING. SHE DOES RESIST LAYING ON HER BACK MAKING THE PROCEDURE DIFFICULT. THE NURSE PROVIDED PAIN MEDICATION PRE PLACEMENT WHICH HELPED THE PATIENT RELAX. THE RIGHT UPPER ARM BRACHIAL WAS WIDLEY PATENT. A #5F TRIPLE LUMEN POWER PICC WAS PLACED PER HOSPITAL POLICY AFTER A BEDSIDE TIMEOUT WAS COMPLETED. THE PICC WAS TRIMMED TO 35CM AND ADVANCED WITHOUTOUT DIFFICULTY. SHE TOLERATED THE PROCEDURE WELL. A STAT CHEST XRAY WAS ORDERED FOR CONFIRMATION
[2018-10-29 20:45] VITALS: BP 124/49
[2018-10-30 04:45] VITALS: BP 127/55
[2018-10-30 06:01] LABS: HEMOGLOBIN 10.6 gm/dL (12.0-15.0); MCH 25.9 pg (26.0-34.0); MCHC 31.1 g/dL (28.0-37.0); MCV 83.3 fL (80.0-100.0); RBC 4.08 mil/uL (4.20-5.00); RDW 16.7 % (10.5-14.5); WBC 15.1 thou/uL (4.0-11.0)
[2018-10-30 06:16] LABS: ALBUMIN 2.2 g/dL (3.4-5.0); CALCIUM 8.7 mg/dL (8.5-10.1); CREATININE 1.1 mg/dL (0.6-1.0); MAGNESIUM 2.3 mg/dL (1.8-2.4); POTASSIUM 3.6 mmol/L (3.5-5.1); TOTAL BILIRUBIN 0.4 mg/dL (<0.1-1.0)
--- NOTE | 2018-10-30 06:51 | NUR ---
Pt slept well through the night with stable VS. PRN fentanyl given for breakthrough restlessness with desired effect achieved. Cardizem gtt going at low dose and Afib with rate controlled. Urine output adequate for shift and am lab results noted, continue with POC.
[2018-10-30 07:18] VITALS: BP 137/59
--- NOTE | 2018-10-30 09:29 | NUR ---
PATIENT NOT PARTICIPATING IN O.T. ASSESSMENT: ATTEMPTS MADE OVER 3 DAYS. THEREFORE, PATIENT ON HOLD WHEN/IF PATIENT PARTICIPATES AND NEW PHYSICIAN ORDERS ARE RECEIVED.
[2018-10-30 11:50] VITALS: BP 122/78
[2018-10-30 16:33] VITALS: BP 127/77
[2018-10-30 17:15] VITALS: BP 154/72
--- NOTE | 2018-10-30 17:47 | NUR ---
ASSESSMENT CHARTED, PATIENT IS MORE ALERT AND AWARE, NO COMPLAINTS OF PAIN, VILLANUEVA PATENT TO DD, FAMILY AT BEDSIDE, WILL CONTINUE TO MONITOR
[2018-10-30 19:55] VITALS: BP 129/69
[2018-10-31] VITALS (7 sets, daily range): BP systolic 104–150; BP diastolic 52–97
[2018-10-31 05:54] LABS: ABSOLUTE NEUTROPHILS 15.4 thou/uL (1.4-8.2); BASOPHILS 0.5 % (0.0-2.0); EOSINOPHILS 0.2 % (0.0-3.0); HEMATOCRIT 34.3 % (37.0-47.0); HEMOGLOBIN 10.5 gm/dL (12.0-15.0); LYMPHOCYTES 6.3 % (24.0-44.0); MCH 25.8 pg (26.0-34.0); MCHC 30.8 g/dL (28.0-37.0); MONOCYTES 6.9 % (1.0-8.0); PLATELET COUNT 307 thou/uL (150-400); POLYS 86.1 % (36.0-66.0); RBC 4.08 mil/uL (4.20-5.00); RDW 16.8 % (10.5-14.5)
[2018-10-31 06:03] LABS: CALCIUM 8.5 mg/dL (8.5-10.1); CREATININE 1.2 mg/dL (0.6-1.0); MAGNESIUM 2.3 mg/dL (1.8-2.4); POTASSIUM 3.4 mmol/L (3.5-5.1)
--- NOTE | 2018-10-31 06:42 | NUR ---
PATIENT IS ALERT,WILL ANSWER YES OR NO.REPOSITIONED Q2 HOURS.ON CARDIZEM GTT.MONITOR SHOWS AFIB;CONTROLLED.VILLANUEVA TO DD.WILL MONITOR AND CONTINUE POC.
[2018-10-31 07:50] LABS: BE(vivo) 1.5 mmol/L (-2 to +3); HCO3 27.5 mmol/L (22.0-26.0); PO2 148.3 mmHg (80.0-100.0); pH 7.359 (7.360-7.450); sO2 98.8 % (92.0-98.0)
--- NOTE | 2018-10-31 12:08 | NUR ---
SOMNOLENT. WAKES TO VERBAL REQUEST BUT RETURNS TO SLEEP. ST ORDERS PUREED DIET WITH HONEY THICK LIQUIDS. COMPLETE CARES. WILL CONTINUE TO MONITOR.
--- NOTE | 2018-10-31 12:40 | NUR ---
[facility] check [facility] skilled Medicare days, as we want her to go back SNF. Possible dc in 1-2 days. JOSHUA will follow up with Tania.
--- NOTE | 2018-10-31 18:37 | NUR ---
HER DTR-IN-LAW HERE AT DINNERTIME. PT HAS BEEN REFUSING FOOD AND DRINK ALL DAY, BUT HER DTR IS ABLE TO GET HER TO EAT BITES AND DRINK.
[2018-11-01 03:50] VITALS: BP 103/41
[2018-11-01 05:36] LABS: CALCIUM 8.3 mg/dL (8.5-10.1); CREATININE 1.3 mg/dL (0.6-1.0); POTASSIUM 3.1 mmol/L (3.5-5.1)
--- NOTE | 2018-11-01 06:00 | NUR ---
RECEIVED PT'S CARE AT 1939; PT. ON BED; RESTING WITH EEYES CLOSE; OPEN EYES WHEN CALLING NAME; DURING ASSESSMENT PT. DOES NOT ANSWER BACK IF HAS ANY PAIN; DROWSY; HS MEDICATION GIVEN; AFIB THROUGH THE NIGHT; DIALTAZEM 5MG/H; TURN Q2H; ABLE TO REST WITH EYES CLOSED DURING THE NIGHT; ASSESSMENT CHARGED; FOLLOWING POC; WILL PASS ON REPORT.
[2018-11-01 08:08] VITALS: BP 104/81
[2018-11-01 11:29] VITALS: BP 104/81
--- NOTE | 2018-11-01 14:19 | NUR ---
FAXED CLINICAL UPDATE TO [facility] SPOKE WITH KERRY IN ADM SHE RECEIVED UPDATE. DCP TO FOLLOW.
--- NOTE | 2018-11-01 17:10 | NUR ---
Case discussed with the care team. No weekend dc anticipated. Pt more lethargic today and not eating much. The attending to discuss plan of care with the pt's son Gage. [facility] updated and they are holding her bed. She can come back under her snf benefit or ltc pending her plan of care and need for rehab. The pt has been too weak to participate with therapy. They will continue to attempt tx visits. Will follow.
--- NOTE | 2018-11-01 19:38 | NUR ---
ASSUMED CARE AT 0700, SHIFT ASSESSMENT DONE, MEDS GIVEN, VSS. OFF THE CARDIZEM DRIP, DENIES ANY PAIN, NAUSEA, VOMITING. GOT A BED BATH TODAY. STILL AFIB RATE CONTROLLED ON THE MONITOR. APPETITE VERY POOR. WILL CONTINUE TO ASSESS AND ASSIST WITH ADLs NEEDED.
[2018-11-01 20:02] LABS: URINE BILIRUBIN NEGATIVE (Negative); URINE BLOOD 3+ (Negative); URINE CLARITY CLEAR; URINE COLOR YELLOW; URINE GLUCOSE-RANDOM* NEGATIVE (Negative); URINE KETONES NEGATIVE (Negative); URINE LEUKOCYTES-REFLEX TRACE (Negative); URINE NITRITE-REFLEX NEGATIVE (Negative); URINE PROTEIN (DIPSTICK) 2+ (Negative); URINE SPECIFIC GRAVITY 1.025 (1.005-1.035); URINE UROBILINOGEN 0.2 E.U./dl (0.2-1.0)
[2018-11-01 20:04] VITALS: BP 122/42
[2018-11-01 20:09] LABS: SQUAMOUS 0-3 Few /LPF (0-3)
[2018-11-01 20:10] LABS: HYALINE CASTS 4-10 Moderate /LPF (None Seen); MUCUS 0-3 Light strn/LPF (None Seen)
[2018-11-01 20:11] LABS: WBC CLUMPS Few (None Seen)
[2018-11-01 20:12] LABS: CRYSTALS None Seen /LPF (None Seen); URINE WBC-REFLEX 6-15 Few /HPF (0-5)
[2018-11-01 20:13] LABS: RENAL EPITHELIAL CELLS 0-3 Few /LPF (None Seen); TRANSITIONAL EPITHEL CELL 0-3 Few /LPF (None Seen)
--- NOTE | 2018-11-02 04:29 | NUR ---
RECEIVED PT'S CARE AROUND 1919; PT. ON BED; RESTING WITH EYES CLOSED; OPEN EYES AFTER CALLING NAME; HS MEDICATION GIVEN; FIX ON BED; C/O PAIN AT MOVEMENT; WITHDRAW FEET WHEN TRIED TO APPLIED YELLOW SUCKS; YELLOW SUCKS NOT APPLIED; AVAILABLE AT THE BED SIDE; AROUND [employer] CONTACT DUE TO PT. NOT ABLE TO SWALLOW WHOLE PILLS; DIALTAZEM CANNOT BE CRUSH; ORDERS RECEIVED; SYNUS RYTHM THROUGH THE NIGHT; NO BM THROUGH THE NIGHT; DECREASED APPETITED; REFUSED THICK ICE TEA; AFTER MIDNIGHT PT. MORE ALERT; ABLE TO ST. "I DO NOT HAVE ANY PAIN" AFTER ASKING; MONITORING; ASSESSMENT CHARGED; FOLLOWING POC; WILL PASS ON REPORT.
[2018-11-02 05:32] VITALS: BP 144/52
[2018-11-02 05:39] LABS: HEMATOCRIT 30.7 % (37.0-47.0); HEMOGLOBIN 9.3 gm/dL (12.0-15.0); MCH 25.8 pg (26.0-34.0); MCHC 30.3 g/dL (28.0-37.0); MCV 85.3 fL (80.0-100.0); PLATELET COUNT 271 thou/uL (150-400); RDW 17.1 % (10.5-14.5); WBC 20.6 thou/uL (4.0-11.0)
[2018-11-02 05:45] LABS: ALBUMIN 1.8 g/dL (3.4-5.0); CALCIUM 8.2 mg/dL (8.5-10.1); CREATININE 1.3 mg/dL (0.6-1.0); POTASSIUM 3.2 mmol/L (3.5-5.1); TOTAL BILIRUBIN 0.3 mg/dL (<0.1-1.0)
[2018-11-02 06:58] LABS: ABSOLUTE NEUTROPHILS 17.1 thou/uL (1.4-8.2); ANISOCYTOSIS 1+; LARGE PLATELETS FEW; MYELOCYTES 1 %
[2018-11-02 07:33] VITALS: BP 151/57
--- NOTE | 2018-11-02 10:03 | NUR ---
ASSUMED CARE OF PT APPROX 0715, INCREASED ALERTNESS, INTERACTION, AWARENESS VERSUS WEEK PRIOR. TOOK PILLS ONE AT A TIME, WHOLE, IN HER SPECIAL ICE CREAM. KEEPS SAYING SHE'S READY TO GO HOME. SHOWED HER HOW TO USE CALL LIGHT AGAIN AND SHE'LL PUSH IT, AT THIS TIME. TURN Q2, SEE SEPARATE INTERVENTIONS FOR ASSESSMENTS. ENCOURAGED HER TO CALL FOR ANY NEEDS, IS A FEEDER D/T WEAKNESS.
[2018-11-02 15:58] VITALS: BP 135/60
[2018-11-02 17:29] LABS: URINE BILIRUBIN NEGATIVE (Negative); URINE BLOOD 3+ (Negative); URINE CLARITY CLEAR; URINE COLOR YELLOW; URINE GLUCOSE-RANDOM* NEGATIVE (Negative); URINE KETONES NEGATIVE (Negative); URINE LEUKOCYTES-REFLEX 1+ (Negative); URINE NITRITE-REFLEX NEGATIVE (Negative); URINE PROTEIN (DIPSTICK) TRACE (Negative); URINE UROBILINOGEN 0.2 E.U./dl (0.2-1.0)
[2018-11-02 17:43] LABS: BACTERIA-REFLEX None Seen /HPF (None Seen); FINE GRANULAR CASTS 4-10 Moderate /LPF (None Seen); HYALINE CASTS 4-10 Moderate /LPF (None Seen); SQUAMOUS 0-3 Few /LPF (0-3); URINE RBC 3-10 Few /HPF (0-2)
[2018-11-02 17:44] LABS: AMORPHOUS URATES Moderate /LPF (None Seen); COARSE GRANULAR CASTS 0-3 Few /LPF (None Seen)
[2018-11-02 19:22] VITALS: BP 133/56
--- NOTE | 2018-11-03 03:32 | NUR ---
ASSUMED PT CARE AT 1900. PT ORIENTED TO SELF, SLEEPY. VITAL SIGNS STABLE, ASSESSMENT CHARTED. NO COMPLAINTS OF PAIN. FALL PRECAUTIONS MAINTAINED. TURNS EVERY 2 HOURS, FREQUENT CHECKS. PT RESTED WELL THROUGH THE NIGHT. NO ACUTE CHANGES, WILL CONTINUE TO MONITOR.
[2018-11-03 03:59] VITALS: BP 141/50
[2018-11-03 05:43] LABS: HEMATOCRIT 27.8 % (37.0-47.0); HEMOGLOBIN 8.4 gm/dL (12.0-15.0); MCH 25.7 pg (26.0-34.0); MCHC 30.3 g/dL (28.0-37.0); MCV 84.8 fL (80.0-100.0); PLATELET COUNT 286 thou/uL (150-400); RBC 3.28 mil/uL (4.20-5.00); RDW 17.9 % (10.5-14.5); WBC 20.4 thou/uL (4.0-11.0)
[2018-11-03 05:46] LABS: CALCIUM 8.2 mg/dL (8.5-10.1); CREATININE 1.2 mg/dL (0.6-1.0); MAGNESIUM 1.9 mg/dL (1.8-2.4); POTASSIUM 3.7 mmol/L (3.5-5.1)
[2018-11-03 07:32] LABS: ANISOCYTOSIS 2+
[2018-11-03 08:16] VITALS: BP 136/61
[2018-11-03 14:43] VITALS: BP 131/33
[2018-11-03 18:23] VITALS: BP 139/74
[2018-11-03 20:00] VITALS: BP 135/43
--- NOTE | 2018-11-04 03:44 | NUR ---
ASSUMED PT CARE AT 1900. PT ORIENTED TO SELF, DROWSY. VITAL SIGNS STABLE, ASSESSMENT CHARTED. NO COMPLAINTS OF PAIN. Q2H TURNS, FALL PRECAUTIONS MAINTAINED, FREQUENT CHECKS. RESTED WELL THROUGH THE NIGHT. PROGRESSING SLOWLY TOWARD PLAN OF CARE. WILL CONTINUE TO CLOSELY MONITOR.
[2018-11-04 04:00] VITALS: BP 135/67
[2018-11-04 06:10] LABS: ABSOLUTE NEUTROPHILS 15.2 thou/uL (1.4-8.2); BASOPHILS 0.8 % (0.0-2.0); EOSINOPHILS 1.9 % (0.0-3.0); HEMATOCRIT 26.7 % (37.0-47.0); HEMOGLOBIN 8.2 gm/dL (12.0-15.0); LYMPHOCYTES 5.3 % (24.0-44.0); MCH 25.6 pg (26.0-34.0); MCHC 30.6 g/dL (28.0-37.0); MCV 83.9 fL (80.0-100.0); MONOCYTES 7.2 % (1.0-8.0); PLATELET COUNT 300 thou/uL (150-400); POLYS 84.8 % (36.0-66.0); RBC 3.18 mil/uL (4.20-5.00); RDW 17.3 % (10.5-14.5)
[2018-11-04 06:28] LABS: ALBUMIN 1.6 g/dL (3.4-5.0); CALCIUM 8.4 mg/dL (8.5-10.1); CREATININE 1.1 mg/dL (0.6-1.0); MAGNESIUM 1.9 mg/dL (1.8-2.4); POTASSIUM 3.7 mmol/L (3.5-5.1); TOTAL BILIRUBIN 0.3 mg/dL (<0.1-1.0); TOTAL PROTEIN 5.7 g/dL (6.4-8.2)
[2018-11-04 08:23] VITALS: BP 134/35
[2018-11-04 09:41] VITALS: BP 149/51
--- NOTE | 2018-11-04 15:40 | NUR ---
VASCULAR ACCESS NURSE ROUNDING. THIS PATIENTS PICC LINE CONTINUES TO BE APPROPRIATE AT THIS TIME. SHE CONTINUES ON 2 ANTIBIOTICS INCLUDING VACOMYCIN. HER PERIPHERAL VEINS ARE EXTREAMLY FRAIL. SHE HAS MULTIBLE BRUISES FROM FAILED/ INFILTARTED PERIPHERAL LINES.
[2018-11-04 16:36] VITALS: BP 134/34
--- NOTE | 2018-11-04 16:42 | NUR ---
FAXED CLINICAL UPDATE TO [facility] SPOKE WITH KERRY IN ADM SHE RECEIVED UPDATE. DCP TO FOLLOW.
[2018-11-04 19:24] VITALS: BP 116/31
--- NOTE | 2018-11-04 19:49 | NUR ---
ASSUMED CARE OF PT AT SHIFT CHANGE. ASSESSMENTS CHARTED. MEDS GIVEN PER JUN. PT ALERT TO SELF, SLEEPING THROUGHOUT SHIFT. VISITED BY GRANDYANET AND SON THIS SHIFT. VSS, BP LOW- PROVIDER AWARE. FLUIDS INFUSING PER ORDERS. APPETITE POOR, PT REFUSED MOST MEALS AND SUPPLEMENTS. URINE OUTPUT ADEQUATE PER VILLANUEVA CATH. O2 SATS WNL ON 2L O2. PT SEEMED TO BE MOANING IN PAIN, WHEN ASKED IF IN PAIN PT WOULD OPEN EYES AND DENY PAIN OR ANY CONCERNS. PT CURRENTLY RESTING INN BED IN NO DISTRESS. WILL CONT TO MONITOR AND FOLLOW POC.
[2018-11-05 04:30] VITALS: BP 144/41
--- NOTE | 2018-11-05 05:28 | NUR ---
PT REMAINS IN BED RESTING. INTERMITTENT PERIODS OF SLEEPING WITH MINIMAL WAKEFULNESS. PT SR ON MONITOR. PT REMAINS ON 2L O2 PER NC. PT WITH MAINTENANCE IVFs RUNNING.
[2018-11-05 08:22] VITALS: BP 136/39
--- NOTE | 2018-11-05 10:39 | NUR ---
Spoke with son aGge at bedside, discussed hospice services at [facility]. Sp with Tania at [facility]. At [facility] 2 hospice agencies in [facility] at this time is [facility] and [facility] Gave son brochures on multiple agencies alerted can arrange an info visit at any time or [facility] can as well. Son reports he plans to discuss with his .
[2018-11-05] MEDS ORDERED: LOPRESSOR25 PO (10:43)
[2018-11-05] MEDS ORDERED: DOXYCYCLINE 10100 MG PO (11:46)
[2018-11-05 12:08] LABS: AMIODARONE 0.7 ug/mL (1.0-2.5); DES-AMIODARONE 0.8 ug/mL (1.0-2.5)
[2018-11-05 12:20] VITALS: BP 126/44
--- NOTE | 2018-11-05 13:36 | NUR ---
PLAN DC TO [facility] WITH SKILLED ORDERS. SP WITH KERRY AT [facility] ALERTED DISCUSSED HOSPICE CARE WITH PATIENT. SON HAS HOSPICE BROCHURES. [facility] CANNOT PROVIDE. [facility] FOR 1630 NOTIFIED FACILITY AND FAMILY. CHART COPIIED. TRANSFER FORMS FAXED.
[2018-11-05 16:02] VITALS: BP 142/58
--- NOTE | 2018-11-05 16:50 | NUR ---
ASSUMED PT CARE AT 0700. PT DISCHARGED AT 1650. PT IS ALERT AND ORIENTED X1 TO HERSELF. PT WAS TRANSPORTED OUT BY [facility] ON A STRETCHER. PT DISCHARGED TO [facility]. I SPOKE WITH GRABIEL OLIVEROS WHO IS A RN AT [facility] TO GIVE REPORT. PT'S TELEMONITOR, PICC LINE, AND VILLANUEVA WERE REMOVED. THE PICC LINE AND VILLANUEVA WERE REMOVED WITHOUT COMPLICATIONS. I INFORMED [facility] TO WATCH FOR THE INITIAL VOID. THE PT DID NOT VOID IN THE HOSPITAL AFTER REMOVING VILLANUEVA PRIOR TO DISCHARGE. PT WAS IN SINUS RHYTHM. PT WAS ON BEDREST IN THE HOSPITAL AND HAD Q2 TURNS. PT DID NOT STATE SHE WAS IN PAIN BUT SHE DID GROAN AND MOAN. PT WAS ON 2 L OF OXYGEN VIA NASAL CANNULA AND WAS DISCHARGED WITH 2 L OF O2. PT IS ON A HONEY THICK DIET. PT DID NOT WANT TO EAT LARGE PORTIONS. PT'S SON VISITED HER TODAY AND WAS INFORMED THAT SHE WOULD BE DISCHARGING. PT WAS DISCHARGED WITH PLANS OF STARTING HOSPICE CARE ONCE BACK TO [facility]. PT WAS COOPERATIVE AND PLEASANT.
== END 2018-11-05 17:24 | DRG 871 ==
LOC: ER 08:00 → 2N 08:42 → EROBS 08:42 → 2N 10:03
PROVIDERS: Emergency Medicine; Internal Medicine; Internal Medicine Geriatric Medicine; Nurse Practitioner Family; ADMIT Hospitalist
PROC: 02HV33Z Insertion of Infusion Device into Superior Vena Cava, Percutaneous Approach (ICD-10-PCS; principal; 2018-10-29)
DX: A41.9 Sepsis, unspecified organism (principal); J96.01 Acute respiratory failure with hypoxia; G92 Toxic encephalopathy; J96.02 Acute respiratory failure with hypercapnia; I50.43 Acute on chronic combined systolic (congestive) and diastolic (congestive) heart failure; J18.1 Lobar pneumonia, unspecified organism; K92.2 Gastrointestinal hemorrhage, unspecified; J44.1 Chronic obstructive pulmonary disease with (acute) exacerbation; J44.0 Chronic obstructive pulmonary disease with (acute) lower respiratory infection; N39.0 Urinary tract infection, site not specified; E44.0 Moderate protein-calorie malnutrition; E87.1 Hypo-osmolality and hyponatremia; I11.0 Hypertensive heart disease with heart failure; Z66 Do not resuscitate; I25.10 Atherosclerotic heart disease of native coronary artery without angina pectoris; F03.90 Unspecified dementia, unspecified severity, without behavioral disturbance, psychotic disturbance, mood disturbance, and anxiety; Y95 Nosocomial condition; I48.0 Paroxysmal atrial fibrillation; I45.10 Unspecified right bundle-branch block; R41.0 Disorientation, unspecified; D50.9 Iron deficiency anemia, unspecified; B96.20 Unspecified Escherichia coli [E. coli] as the cause of diseases classified elsewhere; E87.6 Hypokalemia; R13.10 Dysphagia, unspecified; E88.09 Other disorders of plasma-protein metabolism, not elsewhere classified; Z79.82 Long term (current) use of aspirin; Z79.899 Other long term (current) drug therapy; Z88.6 Allergy status to analgesic agent; Z88.0 Allergy status to penicillin; Z87.891 Personal history of nicotine dependence; Z88.2 Allergy status to sulfonamides; Z68.21 Body mass index [BMI] 21.0-21.9, adult; Z79.01 Long term (current) use of anticoagulants
CPT/HCPCS: 10081; 27000